=== PATIENT | female | born 1990 ===

== ENCOUNTER 2023-06-08 18:16 | Outpatient (REF) | payer MEDICAID, SELFPAY | END 2023-06-08 18:17 | disposition home or self-care (01) | LOC: HO.HHCLNP 18:16 | PROVIDERS: Visit Provider Registered Nurse | DX: R30.0 Dysuria (principal) | CPT/HCPCS: 87086 ==

== ENCOUNTER 2023-11-07 18:40 | Outpatient (REF) | payer MEDICAID, SELFPAY ==
[2023-11-09 01:59] LABS: C. trachomatis RNA TMA NOT DETECTED (NOT DETECTED); N. gonorrhoeae RNA TMA NOT DETECTED (NOT DETECTED)
[2023-11-10 01:43] LABS: Trichomonas (NAAT) NOT DETECTED (NOT DETECTED)
[2023-11-22 12:18] LABS: Clinical Information NONE GIVEN; HPV mRNA E6/E7 NOT DETECTED; Previous Biopsy Date NONE GIVEN; Thin Prep Source CERVICAL
== END 2023-11-07 18:41 | disposition home or self-care (01) ==
LOC: HO.HHCLNP 18:40
PROVIDERS: Visit Provider Advanced Practice Midwife
DX: Z11.3 Encounter for screening for infections with a predominantly sexual mode of transmission (principal); Z12.4 Encounter for screening for malignant neoplasm of cervix
CPT/HCPCS: 36415; 87491; 87591; 87624; 87661; 88175